=== PATIENT | female | born 1935 | race Caucasian/White ===

== ENCOUNTER → 2018-03-28 | Outpatient (CLI) | payer OTHER ==
[~2018-03-28] VITALS: Ht 154.9 cm; Wt 47.6 kg
[~2018-03-28] MED LIST: ACYCLOVIR 400400 MG PO; ALLEGRA ALLERG180 MG PO; GYNODIOL0.5 MG PO; LISINOPRIL20 MG PO; NEXIUM 40 MG CA40 M1 PO; PRESERVISION A1 EAC2 PO; TRAZODONE HCL50 MG PO; ZOLOFT50 MG PO
--- NOTE | ~2018-03-28 | PATH ---
[facility] [address] [place] [address] PATHOLOGY RPT PROCEDURE Name: SIERRA GREENE Room #: REG CL M.R.#: [id number] Admission: 03/28/18 Date of : 35 Discharge: Report #: [id number] Path Case #: [id number] [facility] Accession Number: [id number] . 01 Material submitted: . RANDOM COLON BX R/O MICROSCOPIC COLITIS . 01 Clinical history: . Diarrhea, Hx polyps . 02 Diagnosis: Random biopsy rule out microscopic colitis, history of diarrhea: - Findings compatible with collagenous colitis. (MAP:[facility]; 03/30/18) QRQ/03/30/2018 . 02 Electronically signed: . Yao Fraire MD, Pathologist NPI- [id number] . 01 Gross description: . Received in formalin labeled "[place], Sierra, random BX, rule out microscopic colitis," are multiple segments of ventura soft tissue measuring 1.3 x 0.4 x 0.2 cm in maximum dimension. The specimen is filtered and submitted entirely in cassette A1. ([facility]; 03/28/2018) TOB/TOB . 02 Pathologist provided ICD-10: K52.831 . 02 CPT . 867500 Performed at: [address], [place], [place] [id number] MD Marcello Mobley MD Phone: [phone] Performed at: [address] [id number] MD Chantel Mora MD Phone: [phone]
--- NOTE | ~2018-03-28 | P ---
[facility] [place] [address] PROCEDURE REPORT Name: SIERRA GREENE Room #: REG [facility]#: [id number] Admission: 03/28/18 Attend Phys: Chaim Thomas Discharge: Date of : 35 Report #: [id number] THIS REPORT FOR: //name// CC: Papito Pierre DATE OF SERVICE: 03/28/2018 PROCEDURE PERFORMED: Colonoscopy with biopsies. HISTORY OF PRESENT ILLNESS: The patient is an 82-year-old female who reports approximately 4-week history of diarrhea. She denies any blood in her stools. No significant abdominal pain. She reports some mild weight loss. No recent antibiotics or change of medications. Stool studies apparently have been done, which were negative. She had a previous colonoscopy 5 years ago with an adenomatous polyp removed at the time. No family history of colon cancer. DESCRIPTION OF PROCEDURE: The risks and benefits of the procedure were explained to the patient, those risks including but not limited to bleeding, perforation, the risk of sedation. She understood these risks and gave informed consent. Sedation was given using propofol per Anesthesia. Next, a digital rectal exam initially showed small external hemorrhoids, otherwise normal. Next, using a standard Olympus colonoscope, the scope was placed in the patient's anus and advanced under direct vision to the cecum. The overall prep was good. The cecum and the ileocecal valve were normal in appearance. The ascending, transverse and descending colon were normal. A few small scattered diverticula were noted in the sigmoid colon, no evidence of inflammation, otherwise normal. The rectal mucosa was normal. Random biopsies were obtained to rule out the possibility of microscopic colitis. On retroflexion, small nonbleeding internal hemorrhoids were noted. The scope was then withdrawn and the procedure terminated. The patient tolerated the procedure well. IMPRESSION: 1. Mild sigmoid diverticulosis. 2. Small internal and external hemorrhoids. 3. Otherwise normal colonoscopy. RECOMMENDATIONS: 1. Await biopsy results. 2. Recommend a trial of probiotics while awaiting biopsy results. [facility] [address] [place] [address] PROCEDURE REPORT Name: SIERRA GREENE Room #: REG Frank Terrell#: [id number] Admission: 03/28/18 Attend Phys: Chaim Thomas Discharge: Date of : 35 Report #: [id number] Thank you for allowing me to participate in her care. <ELECTRONICALLY SIGNED> By: Chaim Ngo MD 03/30/18 1020 [id number] [id number] Chaim Ngo MD /nt
== END | disposition home or self-care (01) ==
LOC: GI 08:03
DX: K52.831 Collagenous colitis (principal); K57.30 Diverticulosis of large intestine without perforation or abscess without bleeding; K64.8 Other hemorrhoids; Z86.010 Personal history of colon polyps; I10 Essential (primary) hypertension; K21.9 Gastro-esophageal reflux disease without esophagitis; F32.9 Major depressive disorder, single episode, unspecified; F41.9 Anxiety disorder, unspecified; Z90.710 Acquired absence of both cervix and uterus; Z98.890 Other specified postprocedural states; Z87.891 Personal history of nicotine dependence; Z98.41 Cataract extraction status, right eye; Z79.899 Other long term (current) drug therapy; Z85.3 Personal history of malignant neoplasm of breast
CPT/HCPCS: 62110; 62900